=== PATIENT | male | born 1980 | race Caucasian/White ===

== ENCOUNTER 2017-11-29 18:02 | Emergency (ER) | payer MEDICAID ==
[2017-11-29] MEDS ORDERED: SODIUM CHLORIDE 0.9% 1,000 ML IV ONE ×3 (18:30→18:31)
[2017-11-29] MEDS ORDERED: ONDANSETRON 4 MG/2 ML VIAL IVP STA (18:30)
[2017-11-29 18:31] LABS: BASOPHILS # (AUTO) 0.1 10^3/uL (0.0-0.1); BASOPHILS % (AUTO) 1.1 %; EOSINOPHILS # (AUTO) 0.1 10^3/uL (0.0-0.7); EOSINOPHILS % (AUTO) 1.9 %; HGB - HEMOGLOBIN 15.6 g/dL (14.0-18.0); LYMPHOCYTES % (AUTO) 25.4 %; MEAN CORPUSCULAR HEMOGLOBIN 30.5 pg (27.0-31.0); MEAN CORPUSCULAR VOLUME 87.1 fL (80.0-94.0); MEAN PLATELET VOLUME 9.2 fL (7.4-11.4); MONOCYTES # (AUTO) 0.8 10^3/uL (0.0-1.0); MONOCYTES % (AUTO) 9.7 %; NEUTROPHILS # (AUTO) 4.8 10^3/uL (1.5-6.6); NEUTROPHILS % (AUTO) 61.9 %; PLT - PLATELET COUNT 211 10^3/uL (130-450); RED BLOOD COUNT 5.11 10^6/uL (4.70-6.10); RED CELL DISTRIBUTION WIDTH 13.2 % (12.0-15.0); WHITE BLOOD COUNT 7.7 x10^3/uL (4.8-10.8)
--- NOTE | 2017-11-29 18:38 | ED Physician Documentation ---
History of Present Illness - Stated complaint Stated Complaint: VOMITING/FEVER - Chief complaint Chief Complaint: Abd Pain - History obtained from History obtained from: Patient - History of Present Illness Timing: How many weeks ago (1) Pain level max: 0 Pain level now: 0 Improved by: nothing Worsened by: nothing - Additonal information Additional information: Patient is a 37-year-old male who presents to the emergency department with general fatigue and weakness for the past week and a half. States has had nausea and started vomiting. Has had subjective fevers. Has no other complaints. Recently stopped smoking. No abdominal pain. No diarrhea. No constipation. Review of Systems Ten Systems: 10 systems reviewed and negative Constitutional: denies: Fever, Chills Ears: denies: Ear pain Nose: denies: Rhinorrhea / runny nose, Congestion Throat: denies: Sore throat Cardiac: denies: Chest pain / pressure Respiratory: denies: Cough GI: reports: Nausea, Vomiting. denies: Abdominal Pain, Abdominal Swelling, Diarrhea Skin: denies: Rash Musculoskeletal: denies: Neck pain, Back pain Neurologic: denies: Headache PD PAST MEDICAL HISTORY - Past Medical History Past Medical History: Yes Respiratory: Asthma - Past Surgical History Past Surgical History: No - Present Medications Home Medications: Ambulatory Orders Medication Instructions Recorded Confirmed metFORMIN [Glucophage] 500 mg PO BIDWM #60 tablet 11/29/17 - Allergies Allergies/Adverse Reactions: Allergies Allergy/AdvReac Type Severity Reaction Status Date / Time No Known Drug Allergies Allergy Verified 11/29/17 18:09 - Social History Does the pt smoke?: Yes Smoking Status: Current every day smoker Does the pt drink ETOH?: No Does the pt have substance abuse?: No - Immunizations Immunizations are current?: Yes PD ED PE NORMAL - Vitals Vital signs reviewed: Yes - General General: Alert and oriented X 3, No acute distress - HEENT HEENT: Moist mucous membranes - Neck Neck: Supple, no meningeal sign - Cardiac Cardiac: RRR, Strong equal pulses - Respiratory Respiratory: No respiratory distress, Clear bilaterally - Abdomen Abdomen: Soft, Non tender - Back Back: No CVA TTP, No spinal TTP - Derm Derm: Warm and dry - Neuro Neuro: Alert and oriented X 3 - Psych Psych: Normal mood, Normal affect Results - Vitals Vitals: Vital Signs - 24 hr 09/16/18 09/16/18 18:07 21:57 Temperature 36.9 C 36.6 C Heart Rate 103 H 90 Respiratory 18 18 Rate Blood Pressure 131/78 H 128/78 O2 Saturation 97 98 Oxygen O2 Source Room air - Labs Labs: Laboratory Tests 11/29/17 11/29/17 11/29/17 18:15 18:15 18:15 WBC 7.7 RBC 5.11 Hgb 15.6 Hct 44.5 MCV 87.1 MCH 30.5 MCHC 35.0 RDW 13.2 Plt Count 211 MPV 9.2 Neut # (Auto) 4.8 Lymph # (Auto) 2.0 [place] # (Auto) 0.8 Eos # (Auto) 0.1 Baso # (Auto) 0.1 Absolute Nucleated RBC 0.00 Nucleated RBC % 0.0 Manual Slide Review Indicated Platelet Estimate NORMAL (130-450,000) Platelet Morphology 1+ GIANT PLATELETS RBC Morph Micro Appear NORMAL APPEARANCE VBG pH VBG pCO2 VBG pO2 VBG HCO3 VBG Total CO2 VBG O2 Saturation VBG Base Excess Sodium 134 L Potassium 3.8 Chloride 98 L Carbon Dioxide 26 Anion Gap 10.0 BUN 10 Creatinine 0.9 Estimated GFR (MDRD) 95 Glucose 379 H POC Whole Bld Glucose Calcium 9.3 Total Bilirubin 0.3 AST 23 ALT 30 Alkaline Phosphatase 51 Total Protein 7.6 Albumin 4.0 Globulin 3.6 Albumin/Globulin Ratio 1.1 Lipase 39 Urine Color Urine Clarity Urine pH Ur Specific [place] Urine Protein Urine Glucose (UA) Urine Ketones Urine Occult Blood Urine Nitrite Urine Bilirubin Urine Urobilinogen Ur Leukocyte Esterase Ur Microscopic Review Urine Culture Comments Serum Ketones NEGATIVE 11/29/17 11/29/17 11/29/17 18:24 18:45 19:15 WBC RBC Hgb Hct MCV MCH MCHC RDW Plt Count MPV Neut # (Auto) Lymph # (Auto) [place] # (Auto) Eos # (Auto) Baso # (Auto) Absolute Nucleated RBC Nucleated RBC % Manual Slide Review Platelet Estimate Platelet Morphology RBC Morph Micro Appear VBG pH 7.376 VBG pCO2 50.0 VBG pO2 34.0 VBG HCO3 29.3 H VBG Total CO2 31.0 H VBG O2 Saturation 64.0 VBG Base Excess 4.0 H Sodium Potassium Chloride Carbon Dioxide Anion Gap BUN Creatinine Estimated GFR (MDRD) Glucose POC Whole Bld Glucose 375 H Calcium Total Bilirubin AST ALT Alkaline Phosphatase Total Protein Albumin Globulin Albumin/Globulin Ratio Lipase Urine Color YELLOW Urine Clarity CLEAR Urine pH 6.0 Ur Specific [place] 1.015 Urine Protein NEGATIVE Urine Glucose (UA) >=1000 H Urine Ketones NEGATIVE Urine Occult Blood NEGATIVE Urine Nitrite NEGATIVE Urine Bilirubin NEGATIVE Urine Urobilinogen 0.2 (NORMAL) Ur Leukocyte Esterase NEGATIVE Ur Microscopic Review NOT INDICATED Urine Culture Comments NOT INDICATED Serum Ketones 11/29/17 21:37 WBC RBC Hgb Hct MCV MCH MCHC RDW Plt Count MPV Neut # (Auto) Lymph # (Auto) [place] # (Auto) Eos # (Auto) Baso # (Auto) Absolute Nucleated RBC Nucleated RBC % Manual Slide Review Platelet Estimate Platelet Morphology RBC Morph Micro Appear VBG pH VBG pCO2 VBG pO2 VBG HCO3 VBG Total CO2 VBG O2 Saturation VBG Base Excess Sodium Potassium Chloride Carbon Dioxide Anion Gap BUN Creatinine Estimated GFR (MDRD) Glucose POC Whole Bld Glucose 197 H Calcium Total Bilirubin AST ALT Alkaline Phosphatase Total Protein Albumin Globulin Albumin/Globulin Ratio Lipase Urine Color Urine Clarity Urine pH Ur Specific [place] Urine Protein Urine Glucose (UA) Urine Ketones Urine Occult Blood Urine Nitrite Urine Bilirubin Urine Urobilinogen Ur Leukocyte Esterase Ur Microscopic Review Urine Culture Comments Serum Ketones PD MEDICAL DECISION MAKING - ED course Complexity details: reviewed results, re-evaluated patient, considered differential, d/w patient ED course: Patient is a 37-year-old male who presents to the emergency department with what appears to be new onset diabetes. He was given IV fluids and started on metformin. Feels much improved. Will place him on metformin for home and give him a list of primary care providers to follow up with his he will need close follow-up for his diabetes. Patient is tolerating p.o. without difficulty. Patient counseled regarding signs and symptoms for which I believe and urgent re-evaluation would be necessary. Patient with good understanding of and agreement to plan and is comfortable going home at this time This document was made in part using voice recognition software. While efforts are made to proofread this document, sound alike and grammatical errors may occur. - Sepsis Event Vital Signs: Vital Signs - 24 hr 11/29/17 11/29/17 18:07 21:57 Temperature 36.9 C 36.6 C Heart Rate 103 H 90 Respiratory 18 18 Rate Blood Pressure 131/78 H 128/78 O2 Saturation 97 98 Oxygen O2 Source Room air Departure - Departure Disposition: 01 Home, Self Care Clinical Impression: Diabetes Qualifiers: Diabetes mellitus type: type 2 Diabetes mellitus retirement insulin use: without termite inspector use Diabetes mellitus complication status: without complication Qualified Code(s): E11.9 - Type 2 diabetes mellitus without complications Condition: Good Instructions: ED Diabetes General Info Follow-Up: [facility] [Provider Group] [facility] [Provider Group] Prescriptions: metFORMIN [Glucophage] 500 mg PO BIDWM #60 tablet Comments: you appear to have diabetes tonight. You need to follow-up with a doctor locally for further care. Return if you worsen. Losing weight will help with your glucose control Forms: Activity restrictions Discharge Date/Time: 11/29/17 21:45
[2017-11-29 18:44] LABS: ALBUMIN/GLOBULIN RATIO 1.1 (1.0-2.2); BILIRUBIN,TOTAL 0.3 mg/dL (0.2-1.0); CALCIUM 9.3 mg/dL (8.5-10.3); CREATININE 0.9 mg/dL (0.6-1.2); TOTAL PROTEIN 7.6 g/dL (6.7-8.2)
[2017-11-29 18:58] LABS: VBG PH 7.376 (7.31-7.41)
[2017-11-29 19:00] LABS: PLATELET MORPHOLOGY 1+ GIANT PLATELETS (NORMAL); RBC MORPHOLOGY (MULTIPLE) NORMAL APPEARANCE (NORMAL)
[2017-11-29 19:01] LABS: PLATELET ESTIMATE, MANUAL NORMAL (130-450,000) (NORMAL)
[2017-11-29 19:25] LABS: BILIRUBIN,URINE NEGATIVE (NEGATIVE); GLUCOSE, URINE (UA) >=1000 mg/dL (NEGATIVE); KETONES,URINE (UA) NEGATIVE (NEGATIVE); LEUKOCYTE ESTERASE, URINE NEGATIVE (NEGATIVE); NITRITE,URINE NEGATIVE (NEGATIVE); OCCULT BLOOD,URINE NEGATIVE (NEGATIVE); PROTEIN,URINE NEGATIVE (NEGATIVE); UROBILINOGEN,URINE 0.2 (NORMAL) E.U./dL (NORMAL)
[2017-11-29 19:27] LABS: CLARITY,URINE CLEAR (CLEAR)
[2017-11-29] MEDS ORDERED: metFORMIN 500 MG TABLET PO STA (19:57)
[2017-11-29 21:59] VITALS: BP 128/78
== END 2017-11-29 21:45 | disposition home or self-care (01) ==
LOC: ED 18:02
DX: E11.9 Type 2 diabetes mellitus without complications (principal); F17.200 Nicotine dependence, unspecified, uncomplicated
CPT/HCPCS: 36415; 80053; 81003; 82009; 82803; 83690; 85025; 96361; 96374; 99283; A9270; 81001; 87086

== ENCOUNTER 2018-03-04 13:56 | Emergency (ER) | payer MEDICAID ==
[2018-03-04 14:12] VITALS: BP 149/93
--- NOTE | 2018-03-04 14:56 | ED Physician Documentation ---
History of Present Illness - Stated complaint Stated Complaint: WEAKNESS/HOLLEY/DIZZY - Chief complaint Chief Complaint: General - History obtained from History obtained from: Patient - History of Present Illness Timing: Other (37-year-old gent with recent diagnosis of diabetes who is well controlled on metformin 500 mg p.o. twice daily but ran out and does not have primary care follow-up because he thought he might be moving but he not sure if he is moving or not. Yesterday he over ate after getting home from work and today he feels slightly dizzy and a slight headache with blurry vision. Blood sugar was 266 in triage. He has mild polyuria today. No shortness of breath) Review of Systems Constitutional: reports: Fatigue. denies: Fever, Chills Cardiac: denies: Chest pain / pressure, Palpitations Respiratory: denies: Dyspnea, Cough GI: denies: Abdominal Pain, Nausea, Vomiting, Diarrhea PD PAST MEDICAL HISTORY - Past Medical History Past Medical History: Yes Respiratory: Asthma Endocrine/Autoimmune: Type 2 diabetes - Past Surgical History Past Surgical History: No - Present Medications Home Medications: Ambulatory Orders Medication Instructions Recorded Confirmed metFORMIN [Glucophage] 500 mg PO BIDWM #60 tablet 11/29/17 Metformin HCl 500 mg PO BID #120 tablet 03/04/18 - Allergies Allergies/Adverse Reactions: Allergies Allergy/AdvReac Type Severity Reaction Status Date / Time No Known Drug Allergies Allergy Verified 03/04/18 14:07 - Social History Does the pt smoke?: Yes Smoking Status: Current every day smoker Does the pt drink ETOH?: No Does the pt have substance abuse?: No - Immunizations Immunizations are current?: Yes PD ED PE NORMAL - Vitals Vital signs reviewed: Yes - General General: Alert and oriented X 3, No acute distress - HEENT HEENT: PERRL, EOMI - Neck Neck: Supple, no meningeal sign, No bony TTP - Neuro Neuro: Alert and oriented X 3, Normal speech - Psych Psych: Normal mood, Normal affect Results - Vitals Vitals: Vital Signs - 24 hr 03/04/18 14:07 Temperature 36.7 C Heart Rate 77 Respiratory 16 Rate Blood Pressure 149/93 H O2 Saturation 96 Oxygen O2 Source Room air - Labs Labs: Laboratory Tests 03/04/18 14:07 POC Whole Bld Glucose 233 H PD MEDICAL DECISION MAKING - ED course ED course: This is a 37-year-old gentleman with symptoms that are mild of uncontrolled diabetes, his blood sugar is not too bad in triage but not ideal. The importance of primary care follow-up was stressed. Departure - Departure Disposition: Home, Self Care Clinical Impression: Diabetes Qualifiers: Diabetes mellitus type: type 2 Diabetes mellitus fci insulin use: without tractor operator helper use Diabetes mellitus complication status: with hyperglycemia Qualified Code(s): E11.65 - Type 2 diabetes mellitus with hyperglycemia Condition: Good Record reviewed to determine appropriate education?: Yes Instructions: Diabetes Type 2 Oral Meds, Diabetes Type 2 Coping Follow-Up: [facility] [Provider Group] Prescriptions: Metformin HCl 500 mg PO BID #120 tablet Comments: IT IS IMPORTANT TO HAVE A PRIMARY CARE PHYSICIAN TO FOLLOWUP WITH FOR ONGOING CARE AND GOOD DIABETES CONTROL
== END 2018-03-04 15:10 | disposition home or self-care (01) ==
LOC: ED 13:56
DX: E11.65 Type 2 diabetes mellitus with hyperglycemia (principal); Z79.84 Long term (current) use of oral hypoglycemic drugs
CPT/HCPCS: 99283

== ENCOUNTER 2018-03-12 16:27 | Emergency (ER) | payer MEDICAID ==
[2018-03-12 17:08] LABS: BASOPHILS # (AUTO) 0.2 10^3/uL (0.0-0.1); BASOPHILS % (AUTO) 2.1 %; EOSINOPHILS # (AUTO) 0.1 10^3/uL (0.0-0.7); EOSINOPHILS % (AUTO) 1.3 %; LYMPHOCYTES # (AUTO) 1.7 10^3/uL (1.5-3.5); LYMPHOCYTES % (AUTO) 23.2 %; MEAN CORPUSCULAR HEMOGLOBIN 29.5 pg (27.0-31.0); MEAN CORPUSCULAR HGB CONC 33.6 g/dL (32.0-36.0); MEAN CORPUSCULAR VOLUME 87.9 fL (80.0-94.0); MEAN PLATELET VOLUME 8.9 fL (7.4-11.4); MONOCYTES # (AUTO) 0.6 10^3/uL (0.0-1.0); MONOCYTES % (AUTO) 7.8 %; NEUTROPHILS # (AUTO) 4.7 10^3/uL (1.5-6.6); NEUTROPHILS % (AUTO) 65.6 %; PLT - PLATELET COUNT 212 10^3/uL (130-450); RED BLOOD COUNT 4.75 10^6/uL (4.70-6.10); RED CELL DISTRIBUTION WIDTH 13.5 % (12.0-15.0); WHITE BLOOD COUNT 7.2 x10^3/uL (4.8-10.8)
[2018-03-12 17:20] LABS: ALBUMIN 4.4 g/dL (3.2-5.5); ALBUMIN/GLOBULIN RATIO 1.3 (1.0-2.2); BILIRUBIN,TOTAL 0.6 mg/dL (0.2-1.0); CALCIUM 9.2 mg/dL (8.5-10.3); CREATININE 0.9 mg/dL (0.6-1.2); TOTAL PROTEIN 7.8 g/dL (6.7-8.2)
[2018-03-12] MEDS ORDERED: IPRATROPIUM/ALBUTEROL 3 ML NEB INH STA (17:43)
--- NOTE | 2018-03-12 17:45 | ED Physician Documentation ---
History of Present Illness - Stated complaint Stated Complaint: CP/SOA - Chief complaint Chief Complaint: Cardiac - History obtained from History obtained from: Patient - History of Present Illness Pain level max: 2 Pain level now: 1 - Additonal information Additional information: 37-year-old male presents to the emergency department with mild dyspnea on exertion for the past several weeks. Worse with walking, better with rest. Also has had slight intermittent chest tightness, rates as a 1 or 2 out of 10. He quit smoking 6 months ago. No fevers. No cough. Does use smokeless tobacco. Nonradiating. Has not taken anything for this. Has not used inhalers in the past Review of Systems Ten Systems: 10 systems reviewed and negative Constitutional: denies: Fever, Chills Nose: denies: Rhinorrhea / runny nose, Congestion Respiratory: denies: Cough, Wheezing GI: denies: Abdominal Pain, Nausea, Vomiting, Diarrhea Skin: denies: Rash Musculoskeletal: denies: Neck pain, Back pain Neurologic: denies: Headache PD PAST MEDICAL HISTORY - Past Medical History Respiratory: Asthma Endocrine/Autoimmune: Type 2 diabetes - Past Surgical History Past Surgical History: No - Present Medications Home Medications: Ambulatory Orders Medication Instructions Recorded Confirmed metFORMIN [Glucophage] 500 mg PO BIDWM #60 tablet 11/29/17 Metformin HCl 500 mg PO BID #120 tablet 03/04/18 Albuterol Sulf [Ventolin Hfa 1 - 2 puffs INH Q4HR PRN #1 inhaler 03/12/18 Inhaler] Ibuprofen [Motrin] 400 mg PO 03/12/18 - Allergies Allergies/Adverse Reactions: Allergies Allergy/AdvReac Type Severity Reaction Status Date / Time No Known Drug Allergies Allergy Verified 03/04/18 14:07 - Social History Does the pt smoke?: Yes Smoking Status: Current every day smoker Does the pt drink ETOH?: No Does the pt have substance abuse?: No - Immunizations Immunizations are current?: Yes PD ED PE NORMAL - Vitals Vital signs reviewed: Yes - General General: Alert and oriented X 3, No acute distress, Well developed/nourished - HEENT HEENT: Moist mucous membranes - Cardiac Cardiac: RRR - Respiratory Respiratory: Other (Diminished breath sounds bilaterally) - Abdomen Abdomen: Soft, Non tender, Non distended - Derm Derm: Warm and dry - Extremities Extremities: No edema, No calf tenderness / cord - Neuro Neuro: Alert and oriented X 3 - Psych Psych: Normal mood, Normal affect Results - Vitals Vitals: Vital Signs - 24 hr 03/12/18 03/12/18 03/12/18 16:32 18:00 18:15 Temperature 36.2 C L Heart Rate 84 88 75 Respiratory 16 16 12 Rate Blood Pressure 155/93 H 144/99 H O2 Saturation 96 96 Oxygen O2 Source Room air - EKG (time done) 1650 Rate: Rate (enter#) (88) Rhythm: NSR [place]: Normal Intervals: Normal [place], RBBB (Incomplete) Ischemia: Normal ST segments - Labs Labs: Laboratory Tests 03/12/18 03/12/18 03/12/18 17:05 17:05 17:05 WBC 7.2 RBC 4.75 Hgb 14.0 Hct 41.7 L MCV 87.9 MCH 29.5 MCHC 33.6 RDW 13.5 Plt Count 212 MPV 8.9 Neut # (Auto) 4.7 Lymph # (Auto) 1.7 [place] # (Auto) 0.6 Eos # (Auto) 0.1 Baso # (Auto) 0.2 H Absolute Nucleated RBC 0.00 Nucleated RBC % 0.0 Sodium 139 Potassium 3.6 Chloride 104 Carbon Dioxide 26 Anion Gap 9.0 BUN 23 H Creatinine 0.9 Estimated GFR (MDRD) 95 Glucose 152 H Calcium 9.2 Total Bilirubin 0.6 AST 37 ALT 48 Alkaline Phosphatase 45 Troponin I < 0.04 Total Protein 7.8 Albumin 4.4 Globulin 3.4 Albumin/Globulin Ratio 1.3 Lipase 27 - Rads (name of study) cxr Radiology: Prelim report reviewed, EMP read contemporaneously, See rad report (No acute disease) PD MEDICAL DECISION MAKING - ED course Complexity details: reviewed results, re-evaluated patient, considered differential (No ST elevation DC, no aortic dissection, no PE, no tension pneumothorax, no aortic aneurysm), d/w patient ED course: 37-year-old male with dyspnea on exertion for the past several weeks. Unclear etiology, feels mildly improved after DuoNeb, will trial on an inhaler for home. No evidence of acute coronary syndrome. Recommend echocardiogram as an outpatient. Patient is well-appearing, nontoxic. Symptoms resolved in the emergency department. Patient counseled regarding signs and symptoms for which I believe and urgent re-evaluation would be necessary. Patient with good understanding of and agreement to plan and is comfortable going home at this time This document was made in part using voice recognition software. While efforts are made to proofread this document, sound alike and grammatical errors may occur. Departure - Departure Disposition: 01 Home, Self Care Clinical Impression: Dyspnea Qualifiers: Dyspnea type: unspecified Qualified Code(s): R06.00 - Dyspnea, unspecified Chest pain Qualifiers: Chest pain type: unspecified Qualified Code(s): R07.9 - Chest pain, unspecified Condition: Good Instructions: ED Chest Pain Atypical Unkn Cause, ED Dyspnea Shortness of Breath Follow-Up: your,doctor in 1 week [Other] Prescriptions: Albuterol Sulf [Ventolin Hfa Inhaler] 1 - 2 puffs INH Q4HR PRN #1 inhaler PRN Reason: Shortness Of Air/Wheezing Comments: We will trial you on an inhaler at home. You should follow-up with your doctor for further testing including an echocardiogram of your heart. Your testing is normal tonight. Forms: Activity restrictions Discharge Date/Time: 03/12/18 18:59
--- NOTE | 2018-03-12 17:55 | XRAY Report ---
Reason: zuhair, armand Procedure Date: 03/12/2018 Accession Number: [id number] / [id number] Procedure: XR - Chest 1 View X-Ray CPT Code: 99139 FULL RESULT: EXAM: CHEST RADIOGRAPHY EXAM DATE: 03/12/2018 05:34 PM. CLINICAL HISTORY: Shortness of breath for 2 weeks. Chest tightness for 2 days. Chest pain today. COMPARISON: None. TECHNIQUE: 1 view. FINDINGS: Lungs/Pleura: No focal opacities evident. No pleural effusion. No pneumothorax. Mediastinum: Within exam limitations, the cardiomediastinal contour is normal. Other: No bony abnormality identified. IMPRESSION: Normal single view chest. RADIA
[2018-03-12 18:54] VITALS: BP 144/99
== END 2018-03-12 18:59 | disposition home or self-care (01) ==
LOC: ED 16:27
DX: R06.09 Other forms of dyspnea (principal); R07.89 Other chest pain; J45.909 Unspecified asthma, uncomplicated; I45.10 Unspecified right bundle-branch block; E11.9 Type 2 diabetes mellitus without complications; Z79.84 Long term (current) use of oral hypoglycemic drugs; F17.220 Nicotine dependence, chewing tobacco, uncomplicated
CPT/HCPCS: 36415; 71045; 80053; 83690; 84484; 85025; 93005; 94640; 99283; 99284

== ENCOUNTER 2018-08-11 10:59 | Emergency (ER) | payer MEDICAID ==
--- NOTE | 2018-08-11 13:17 | ED Physician Documentation ---
PD HPI BACK PAIN - Stated complaint Stated Complaint: LOW BACK PX - Chief complaint Chief Complaint: Back Pain - History obtained from History obtained from: Patient - History of Present Illness Timing - onset: How many days ago (2-3) Timing - duration: Days (2-3) Timing - details: Gradual onset, Still present Location: Lower Quality: Pain, Spasm. 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 There is no abrupt injury fall or direct impact.) Recently seen: Not recently seen (He has a new patient appointment coming up at the clinic on the (august).) Review of Systems Constitutional: denies: Fever, Myalgias Nose: denies: Rhinorrhea / runny nose, Congestion Throat: denies: Sore throat Cardiac: denies: Chest pain / pressure Respiratory: denies: Cough GI: denies: Abdominal Pain : reports: Frequency. denies: Dysuria, Discharge Skin: denies: Rash, Lesions Musculoskeletal: reports: Back pain. denies: Neck pain Neurologic: denies: Focal weakness, Numbness PD PAST MEDICAL HISTORY - Past Medical History Cardiovascular: Hypertension Respiratory: Asthma Endocrine/Autoimmune: Type 2 diabetes - Past Surgical History Past Surgical History: No - Present Medications Home Medications: Ambulatory Orders Medication Instructions Recorded Confirmed metFORMIN [Glucophage] 500 mg PO BIDWM #60 tablet 11/29/17 Metformin HCl 500 mg PO BID #120 tablet 03/04/18 Albuterol Sulf [Ventolin Hfa 1 - 2 puffs INH Q4HR PRN #1 inhaler 03/12/18 Inhaler] Ibuprofen [Motrin] 400 mg PO 03/12/18 Blood Sugar Diagnostic [Glucometer 1 each MC BID #60 strip 08/11/18 Strips] Blood-Glucose Meter [Glucometer] 1 each MC BID #1 each 08/11/18 Metformin HCl 500 mg PO BID #60 tablet 08/11/18 Methocarbamol [Robaxin] 500 mg PO Q6H PRN #30 tablet 08/11/18 Naproxen 500 mg PO BID #20 tablet 08/11/18 Tramadol HCl 50 mg PO Q6H PRN #20 tablet 08/11/18 - Allergies Allergies/Adverse Reactions: Allergies Allergy/AdvReac Type Severity Reaction Status Date / Time No Known Drug Allergies Allergy Verified 08/11/18 11:06 - Social History Does the pt smoke?: Yes Smoking Status: Current every day smoker Does the pt drink ETOH?: No Does the pt have substance abuse?: No - Immunizations Immunizations are current?: Yes PD ED PE NORMAL - Vitals Vital signs reviewed: Yes - General General: Alert and oriented X 3, No acute distress, Well developed/nourished - Neck Neck: Supple, no meningeal sign, No adenopathy - Cardiac Cardiac: RRR, No murmur - Respiratory Respiratory: Clear bilaterally - Abdomen Abdomen: Soft, Non tender - Back Back: No spinal TTP (but is tender in adjacent muscles, more to the left, but on both sides. ) - Derm Derm: Normal color, Warm and dry, No rash - Extremities Extremities: No tenderness to palpate, Normal ROM s pain - Neuro Neuro: Alert and oriented X 3, No motor deficit, Normal speech Results - Vitals Vitals: Vital Signs - 24 hr 08/11/18 08/11/18 11:01 14:39 Temperature 36.4 C L Heart Rate 92 86 Respiratory 14 14 Rate Blood Pressure 141/95 H 128/86 H O2 Saturation 96 98 Oxygen O2 Source Room air - Labs Labs: Laboratory Tests 08/11/18 13:49 POC Whole Bld Glucose 169 H PD MEDICAL DECISION MAKING - ED course Complexity details: considered differential (no red flags for the back pain. He had been off his Metformin and asks for Rx to get him to his new patient appt at the clinic next month. 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 Diabetes mellitus complication status: without complication Qualified Code(s): E11.9 - Type 2 diabetes mellitus without complications Back pain Qualifiers: Back pain location: low back pain Chronicity: acute Back pain laterality: bilateral Sciatica presence: without sciatica Qualified Code(s): M54.5 - Low back pain Condition: Stable Record reviewed to determine appropriate education?: Yes Instructions: ED Low Back Pain Injury Prescriptions: Blood Sugar Diagnostic [Glucometer Strips] 1 each BID #60 strip Blood-Glucose Meter [Glucometer] 1 each MC BID #1 each Metformin HCl 500 mg PO BID #60 tablet Methocarbamol [Robaxin] 500 mg PO Q6H PRN #30 tablet PRN Reason: Spasms Naproxen 500 mg PO BID #20 tablet Tramadol HCl 50 mg PO Q6H PRN #20 tablet PRN Reason: Pain Comments: Regarding your diabetes, resume your metformin twice daily. I wrote a prescription for it to get you until you see your primary care. Check your blood sugar twice daily and see how it is doing until follow-up with your primary care. I wrote a prescription for the glucometer and glucose strips if it is covered by your insurance. For your low back pain, gentle range of motion and heat to the area. Gentle stretching. Naproxen twice daily anti-inflammatory and Robaxin muscle relaxant. Add Tylenol or tramadol as needed for pains. Limited bending lifting and carrying for the next 2 to 3 days. Forms: Activity restrictions Discharge Date/Time: 08/11/18 14:40
[2018-08-11] MEDS ORDERED: NAPROXEN 250 MG TABLET PO STA (13:41)
[2018-08-11] MEDS ORDERED: METHOCARBAMOL 500 MG TABLET PO STA (13:43)
[2018-08-11 14:40] VITALS: BP 128/86
== END 2018-08-11 14:40 | disposition home or self-care (01) ==
LOC: ED 10:59
DX: M54.5 Low back pain (principal); E11.9 Type 2 diabetes mellitus without complications; Z79.84 Long term (current) use of oral hypoglycemic drugs; I10 Essential (primary) hypertension; F17.200 Nicotine dependence, unspecified, uncomplicated
CPT/HCPCS: 99283; A9270

== ENCOUNTER 2018-09-22 08:58 | Emergency (ER) | payer MEDICAID ==
[2018-09-22 09:06] VITALS: BP 187/110
--- NOTE | 2018-09-22 09:26 | ED Physician Documentation ---
History of Present Illness - Stated complaint Stated Complaint: KNEE AND BACK PX - Chief complaint Chief Complaint: Ext Problem - History obtained from History obtained from: Patient - History of Present Illness Timing: Chronic (for years) Severity Comments: moderate pain in the lower back and throbbing in L knee Quality: aching, stabbing Radiates to: left leg Improved by: nothing Worsened by: movement but pt has pain with being still Associated symptoms: denies urinary symptoms, incontinence, drug abuse, abdominal pain, nausea, vomiting, weakness. Reports chronic numbness on top of his left foot for 2 years - Treatment prior to arrival Treatment prior to arrival: tramadol and muscle relaxers - Additonal information Additional information: Denies new fall or injury. Pt is here now because he has had trouble sleeping and needs permission to return to work at [employer] Review of Systems Ten Systems: 10 systems reviewed and negative Constitutional: denies: Fever, Chills Cardiac: reports: Reviewed and negative Respiratory: reports: Reviewed and negative GI: reports: Reviewed and negative : reports: Reviewed and negative Skin: reports: Reviewed and negative Musculoskeletal: reports: Back pain, Extremity pain. denies: Extremity swelling, Joint swelling Neurologic: denies: Focal weakness, Numbness Psychiatric: reports: Insomnia PD PAST MEDICAL HISTORY - Past Medical History Past Medical History: Yes Cardiovascular: Hypertension Respiratory: Asthma Endocrine/Autoimmune: Type 2 diabetes - Past Surgical History Past Surgical History: No - Present Medications Home Medications: Ambulatory Orders Medication Instructions Recorded Confirmed RX: metFORMIN [Glucophage] 500 mg PO BIDWM #60 tablet 11/29/17 RX: Metformin HCl 500 mg PO BID #120 tablet 03/04/18 Ibuprofen [Motrin] 400 mg PO 03/12/18 RX: Albuterol Sulf [Ventolin Hfa 1 - 2 puffs INH Q4HR PRN #1 inhaler 03/12/18 Inhaler] Blood Sugar Diagnostic [Glucometer 1 each MC BID #60 strip 08/11/18 Strips] Blood-Glucose Meter [Glucometer] 1 each MC BID #1 each 08/11/18 Methocarbamol [Robaxin] 500 mg PO Q6H PRN #30 tablet 08/11/18 RX: Metformin HCl 500 mg PO BID #60 tablet 08/11/18 RX: Naproxen 500 mg PO BID #20 tablet 08/11/18 RX: Tramadol HCl 50 mg PO Q6H PRN #20 tablet 08/11/18 RX: Gabapentin 300 mg PO QPM #30 capsule 09/22/18 - Allergies Allergies/Adverse Reactions: Allergies Allergy/AdvReac Type Severity Reaction Status Date / Time No Known Drug Allergies Allergy Verified 09/22/18 09:06 - Social History Does the pt smoke?: Yes Smoking Status: Current every day smoker Does the pt drink ETOH?: No Does the pt have substance abuse?: No - Immunizations Immunizations are current?: Yes PD ED PE NORMAL - Vitals Vital signs reviewed: Yes - General General: Alert and oriented X 3, No acute distress, Well developed/nourished - HEENT HEENT: Atraumatic, Moist mucous membranes - Cardiac Cardiac: RRR - Respiratory Respiratory: No respiratory distress - Abdomen Abdomen: Soft, Non distended, Other (obese) - Male Male : Deferred - Rectal Rectal: Deferred - Derm Derm: Normal color, Warm and dry, No rash - Extremities Extremities: No deformity, No tenderness to palpate, Normal ROM s pain, No edema, No calf tenderness / cord - Neuro Neuro: Alert and oriented X 3 Eye Opening: Spontaneous Motor: Obeys Commands Verbal: Oriented GCS Score: 15 - Psych Psych: Normal mood, Normal affect PD ED PE EXPANDED - Back Back: Normal exam, Normal ROM. No: Vertebral tenderness, Limited ROM, Straight leg raise + R, Straight leg raise + L - Extremities Extremities: Right knee (no effusion, no deformity, no tenderness to palpation, no decreased range of motion ) Results - Vitals Vitals: Vital Signs - 24 hr 09/22/18 09:04 Temperature 35.8 C L Heart Rate 100 Respiratory 18 Rate Blood Pressure 187/110 H O2 Saturation 100 Oxygen O2 Source Room air PD MEDICAL DECISION MAKING - ED course Complexity details: considered differential, d/w patient ED course: ddx- chronic back pain, lumbar strain, radiculopathy, sciatica, arthritis, spinal epidural abscess, AAA 38 y/o M with hx of chronic back pain, no red flags for back pain as documented. Pt with benign exam. Reports difficulty sleeping due to pain. Discussed need for pain management, antinflammatories and will also give trial of gabapentin. Do not feel that emergent imaging is indicated at this time. Pt has a f/u appt with PMD in 3 weeks. Advised to return if severe pain or urinary incontinence, fever, weakness or oth er new concerning symptoms. Departure - Departure Disposition: 01 Home, Self Care Clinical Impression: Low back pain, Knee pain, chronic, Insomnia Condition: Stable Record reviewed to determine appropriate education?: Yes Instructions: ED Low Back Pain Injury Follow-Up: your, doctor [Other] Prescriptions: RX: Gabapentin 300 mg PO QPM #30 capsule Comments: Take ibuprofen or naproxen as needed for pain along with the gabapentin. Start the gabapentin at nighttime. Continue if needed for severe pain during the day. Forms: Activity restrictions Discharge Date/Time: 09/22/18 09:33
== END 2018-09-22 09:33 | disposition home or self-care (01) ==
LOC: ED 08:58
DX: M54.5 Low back pain (principal); M25.562 Pain in left knee; G89.29 Other chronic pain; G47.00 Insomnia, unspecified; I10 Essential (primary) hypertension; E11.9 Type 2 diabetes mellitus without complications; Z79.84 Long term (current) use of oral hypoglycemic drugs; F17.200 Nicotine dependence, unspecified, uncomplicated
CPT/HCPCS: 99281; 99284